=== PATIENT | male | born 1995 | race Caucasian/White ===

== ENCOUNTER 2017-07-16 08:00 | Outpatient (CLI) | payer BC | END 2017-07-16 08:01 | disposition home or self-care (01) | LOC: BICMRI 08:00 | PROVIDERS: ATTEND Surgery | DX: M51.16 Intervertebral disc disorders with radiculopathy, lumbar region (principal); M48.061 Spinal stenosis, lumbar region without neurogenic claudication | CPT/HCPCS: 72148 ==

== ENCOUNTER 2019-04-08 09:10 | Outpatient (CLI) | payer BC ==
[~2019-04-08 09:10] MED LIST: Gadobenate Dimeglumine 529 MG/1 ML (20ML VIAL) ONE
--- NOTE | 2019-04-08 10:55 | MRI ---
Lumbar spine MRI with and without contrast: 04/08/2019 HISTORY: Left lower extremity pain, numbness, radiculopathy COMPARISON: Lumbar spine MRI without contrast 07/16/2017. TECHNIQUE: Multiplanar multisequence MR imaging of the lumbar spine provided with and without contras t FINDINGS: The sagittal STIR imaging demonstrates no focal area of osseous marrow edema. Assuming 5 lumbar type vertebral bodies, the conus medullaris terminates at T12-L1. T12-L1: Intervertebral disc height and signal intensity is within normal limits with no central canal or neural foraminal stenosis. L1-2: Intervertebral disc height and signal intensity is within normal limits with no significant basilio tral canal or neural foraminal L2-3: Intervertebral disc height and signal intensity within normal limits with no significant centra l canal or neural foraminal stenosis. L3-4: Intervertebral disc height and signal intensity within normal limits. No significant central ca nal or neural foraminal stenosis. L4-5: There is disc space narrowing and disc desiccation. There is a subtle central annular tear. The re is no central canal stenosis or neural foraminal stenosis. L5-S1: There is disc space narrowing and disc desiccation with mild disc bulge and a small left parac entral annular tear. No significant associated central canal or neural foraminal stenosis is seen. The prior examination demonstrated a left paracentral disc protrusion which is no longer present. The postcontrast imaging demonstrates mild enhancement surrounding the region of the left L5 and S1 nerve roots in the left suggesting postoperative scar. There is enhancement of the annular tear in th is region. No significant mass effect on the basis of disc pathology is seen in this region. Postcontrast imaging demonstrates no abnormal enhancement elsewhere within the lumbar spine. The visualized retroperitoneal structures appear unremarkable. IMPRESSION: Postoperative change in the left paracentral region at L5-S1. There is an annular tear in this region with no significant disc herniation or protrusion. Postcontrast enhancement surrounding the left L5 and S1 nerve root suggesting postoperative scar.
== END 2019-04-08 09:11 | disposition home or self-care (01) ==
LOC: SCSMRI 09:10
PROVIDERS: ATTEND Specialist
DX: M51.16 Intervertebral disc disorders with radiculopathy, lumbar region (principal); M96.1 Postlaminectomy syndrome, not elsewhere classified; S39.012A Strain of muscle, fascia and tendon of lower back, initial encounter; Z98.890 Other specified postprocedural states
CPT/HCPCS: 72158; A9577